=== PATIENT | female | born 1990 | race Caucasian/White ===

== ENCOUNTER 2022-03-17 08:48 | Outpatient (CLI) | payer OTHER | END 2022-03-17 09:04 | disposition home or self-care (01) | LOC: SONOGRAMA 08:48 | PROVIDERS: ATTEND Obstetrics & Gynecology | DX: N84.9 Polyp of female genital tract, unspecified (principal) ==

== ENCOUNTER 2022-10-25 10:45 | Outpatient (CLI) | payer OTHER | END 2022-10-25 11:11 | disposition home or self-care (01) | LOC: NST 10:45 | PROVIDERS: ATTEND Obstetrics & Gynecology Gynecology | DX: Z34.83 Encounter for supervision of other normal pregnancy, third trimester (principal) ==

== ENCOUNTER 2022-11-21 12:09 | Outpatient (CLI) | payer OTHER | END 2022-11-21 12:57 | disposition home or self-care (01) | LOC: NST 12:09 | PROVIDERS: ATTEND Obstetrics & Gynecology Maternal & Fetal Medicine | DX: Z34.83 Encounter for supervision of other normal pregnancy, third trimester (principal) ==

== ENCOUNTER 2022-12-16 14:49 | Outpatient (CLI) | payer OTHER | END 2022-12-16 16:30 | disposition home or self-care (01) | LOC: NST 14:49 | PROVIDERS: ATTEND Obstetrics & Gynecology Gynecology | DX: Z34.83 Encounter for supervision of other normal pregnancy, third trimester (principal) ==

== ENCOUNTER 2022-12-27 14:35 | Outpatient (CLI) | payer OTHER | END 2022-12-27 16:00 | disposition home or self-care (01) | LOC: NST 14:35 | PROVIDERS: ATTEND Obstetrics & Gynecology Gynecology | DX: Z34.83 Encounter for supervision of other normal pregnancy, third trimester (principal) ==

== ENCOUNTER 2022-12-28 14:00 | Inpatient (IN) | payer OTHER ==
[~2022-12-28] VITALS: Ht 160 cm; Wt 74.4 kg
== END 2023-01-01 14:24 | disposition home or self-care (01) | DRG 807 ==
LOC: LDR 12-30 11:10 → OB/GYN 12-30 11:10 → LDR 12-30 13:11 → OB/GYN 12-30 20:37
PROVIDERS: ADMIT Obstetrics & Gynecology Maternal & Fetal Medicine; ATTEND Obstetrics & Gynecology Maternal & Fetal Medicine
PROC: 10E0XZZ Delivery of Products of Conception, External Approach (ICD-10-PCS; principal; 2022-12-30)
PROC: 0HQ9XZZ Repair Perineum Skin, External Approach (ICD-10-PCS; 2022-12-30)
PROC: 4A1HXCZ Monitoring of Products of Conception, Cardiac Rate, External Approach (ICD-10-PCS; 2022-12-30)
DX: O70.0 First degree perineal laceration during delivery (principal); Z37.0 Single live birth; Z3A.39 39 weeks gestation of pregnancy; Z20.822 Contact with and (suspected) exposure to COVID-19